=== PATIENT | male | born 1960 | race Caucasian/White ===

== ENCOUNTER → 2016-11-03 | Outpatient (CLI) | payer BC ==
[2016-11-03 11:19] LABS: Basophils # (A) 0.1 k/uL (0-0.2); Basophils % (A) 1 %; CH 30.8; CHCM 34.8; Eosinophils # (A) 0.6 k/uL (0-0.7); Eosinophils % (A) 9 %; HCT 48.1 % (39.0-53.0); HDW 3.08; HGB 16.9 gm/dL (13.0-17.5); Luc # (Auto) 0.16; Luc % (Auto) 3; Lymphocytes % (A) 30 %; MCH 31.2 pg (25.0-35.0); MCHC 35.2 g/dL (31.0-37.0); MCV 88.8 fL (80.0-100.0); Mean Platelet Volume 6.7; Monocytes # (A) 0.4 k/uL (0-1.0); Monocytes % (A) 6 %; Neutrophils # (A) 3.5 k/uL (1.3-7.7); Neutrophils % (A) 52 %; RBC 5.42 m/uL (4.30-5.90); RDW 13.8 % (11.5-15.5); WBC 6.7 k/uL (3.8-10.6); WBC (Perox) 6.79
[2016-11-03 11:21] LABS: Appearance,Urine Clear (Clear); Bilirubin,Urine Negative (Negative); Glucose,Urine (UA) Negative (Negative); Ketones,Urine Negative (Negative); Leukocyte Esterase,Urine Negative (Negative); Nitrite,Urine Negative (Negative); Protein,Urine Negative (Negative); Specific Gravity,Urine 1.018 (1.001-1.035); UA Billing (MACRO vs. MICRO) CHEM; Urobilinogen,Urine <2.0 mg/dL (<2.0)
[2016-11-03 11:37] LABS: Anion Gap 12 mmol/L; Blood Urea Nitrogen 12 mg/dL (9-20); Calcium 10.4 mg/dL (8.4-10.2); Carbon Dioxide 24 mmol/L (22-30); Chloride 106 mmol/L (98-107); Glucose 102 mg/dL (74-99); Non-African American GFR(MDRD) >60 (>60 ml/min/1.73 sqM); Potassium 4.6 mmol/L (3.5-5.1); Sodium 142 mmol/L (137-145)
== END | disposition home or self-care (01) ==
LOC: LABPAT 10:45
PROVIDERS: ATTEND Urology
DX: Z01.818 Encounter for other preprocedural examination (principal); E11.9 Type 2 diabetes mellitus without complications; R35.0 Frequency of micturition; N52.9 Male erectile dysfunction, unspecified
CPT/HCPCS: 80048; 81003; 85025; 87086

== ENCOUNTER 2016-11-11 07:37 | Observation (INO) | payer BC ==
[2016-11-09 14:28] VITALS: BMI 32.5
[~2016-11-11 07:37] MED LIST: AMPICILLIN 1,000 MG in SODIUM CHLORIDE 0.9% 50 ML IVPB ONE; DEXAMETHASONE SOD PHOSPHATE 10 MG/ML 1 ML VIAL IV ONE; GENTAMICIN 160 MG in SODIUM CHLORIDE 0.9% 100 ML IVPB ONE; LIDOCAINE 1% 20 ML VIAL (10MG/ML) FOR IV START INTRADERMA PRN; MIDAZOLAM 2 MG/2 ML VIAL IV PRN; ONDANSETRON 4 MG/2 ML VIAL IVP ONE; SCOPOLAMINE 1.5MG/72HR PATCH TRANSDERM ONE
[2016-11-11] MEDS: LACTATED RINGERS 1,000 ML IV SCH (08:12)
[2016-11-11] MEDS ORDERED: LIDOCAINE 1% 20 ML VIAL (10MG/ML) FOR IV START INTRADERMA ONE (08:12)
[2016-11-11] MEDS ORDERED: MIDAZOLAM 2 MG/2 ML VIAL ONE (08:30)
[2016-11-11] MEDS ORDERED: PROPOFOL 10 MG/ML 20 ML VIAL IV ONE (08:30)
[2016-11-11] MEDS ORDERED: fentaNYL (PF) 50 MCG/ML 2 ML AMP ONE (08:30)
[2016-11-11] MEDS ORDERED: GENTAMICIN 80 MG in SODIUM CHLORIDE 0.9% 500 ML IRRIGATION ONE (08:30)
[2016-11-11] MEDS ORDERED: GLYCOPYRROLATE 0.2 MG/ML 2 ML VIAL ONE (08:30)
[2016-11-11] MEDS ORDERED: KETAMINE 10 MG/ML 20 ML VIAL ONE (08:30)
[2016-11-11] MEDS ORDERED: LACTATED RINGERS 1,000 ML IV ONE (09:47)
[2016-11-11] MEDS ORDERED: ALBUTEROL NEBULIZED 2.5 MG/3 ML INHALATION PRN ×2 (10:01→10:14)
[2016-11-11] MEDS ORDERED: NALOXONE 0.4 MG/ML 1 ML VIAL IV PRN (10:04)
[2016-11-11] MEDS ORDERED: diphenhydrAMINE 50 MG CAP PO PRN (10:04)
--- NOTE | 2016-11-11 10:11 | P.OP ---
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 [facility] and came to see me for impotence. He has been treated with a variety of treatments that have failed or are not satisfactory. He comes for an inflatable penile prosthesis. The risks and complications of an outlined Description of Procedure: The patient is brought to the operating suite and given a spinal anesthetic followed by sedation on the operating table. A shave sterile prep is administered. An infrapubic incision from the base of the penis to just above the pubic bone is made. The rectus fascia is exposed as it are the corpora cavernosa bilaterally. 3-0 PDS stay stitches are placed in each corpora. Corporotomies were made bilaterally. I dissect proximally and distally in each corpora with Metzenbaum scissors followed by Hegar dilators 9-13. I then measured the length of the corpora bilaterally to be 10 cm proximal and 9 cm distal. I thus we'll use an AMS 15 cm CX prosthesis with 4 cm rear tip extenders. I then open the rectus fascia and clean the prevesical space. The balloon reservoir which had been prepped is placed in that space and the tubing is brought out through the external inguinal ring. It is filled with 65 mL of saline. The rectus fascia closed with an 0 running PDS. I then used the Joseph needle and Hoang introducer to pass each cylinder through the corpora with the Joseph needle coming out the glans penis bilaterally. The implants were seated and inflated and set nicely without ST deformity. There is no notable curvature as the patient thought he might have. I then closed the corporotomies with running 3-[address] the pump in the scrotum on the right side. I connected the pump to the reservoir with straight connects. I then pump the implant again and the pumps and deflates nicely. I irrigate thoroughly and closed the subcutaneous tissue with a 3-0 chromic and the skin with a 4-0 subcutaneous Vicryl a 14-[place] Knight catheters placed in the urine is clear the patient awake and returned recovery room in good condition. He tolerated the procedure well and will be observed in the hospital postoperatively. Blood loss is 50 mL
[2016-11-11 10:16] VITALS: RESP 16
[2016-11-11] MEDS: HYDROmorphone 1 MG/ML 1 ML SYRINGE IVP PRN ×3 (10:38→10:53)
[2016-11-11] MEDS: D5-0.45% NACL WITH KCL 20MEQ/L 1,000 ML IV SCH (11:51)
[2016-11-11] MEDS: HYDROmorphone PCA 5 MG/25 ML SYRINGE IV PRN ×2 (11:51→23:14)
[2016-11-11] MEDS: KETOROLAC 30 MG/ML 1 ML VIAL IVP PRN ×2 (15:52→23:02)
[2016-11-11] MEDS: CALCIUM CARBONATE 500 MG CHEWABLE PO SCH (18:27)
[2016-11-12] MEDS: CALCIUM CARBONATE 500 MG CHEWABLE PO SCH ×2 (04:58→08:18)
[2016-11-12] MEDS: ONDANSETRON 4 MG/2 ML VIAL IVP PRN ×2 (07:02→12:01)
[2016-11-12] MEDS: LACTATED RINGERS 1,000 ML IV SCH (08:14)
[2016-11-12] MEDS: D5-0.45% NACL WITH KCL 20MEQ/L 1,000 ML IV SCH (08:18)
--- NOTE | 2016-11-12 11:06 | P.DS ---
Providers Date of admission: 11/11/16 13:55 Attending physician: Anurag Best Primary care physician: Tobi Brown [facility] Course: The patient was brought to the hospital 11/11/2016 for an inflatable penile prosthesis. He underwent this without difficulty. He was kept in the hospital overnight because of the long distance from home to the hospital. This morning he feels well. The wound looks good. The catheter has been removed. If he voids to be discharged home. Follow-up in the office in one week. Postoperative instructions have been given. A prescription for [place] has been given. Patient Condition at Discharge: Good Plan - Discharge Summary New Discharge Prescriptions: Hydrocodone/Acetaminophen [[place] 7.5-325] 1 each PO Q4HR PRN #30 tab PRN Reason: Pain Control Discharge Medication List Albuterol Sulfate [Proair Hfa] 1 - 2 puff INHALATION RT-Q6H PRN 11/09/16 [ History] Calcium Carbonate [Tums] 500 mg PO TID 11/09/16 [History] Niacin [Niacin ER] 500 mg PO AC-SUPPER 11/09/16 [History] Hydrocodone/Acetaminophen [[place] 7.5-325] 1 each PO Q4HR PRN #30 tab 11/12/16 [ Rx] Follow up Appointment(s)/Referral(s): Anurag Best MD [STAFF PHYSICIAN] - 1 Week Care Plan Goals (MU): May shower if he covers a plastic wrap ,may drive next week Discharge Disposition: HOME SELF-CARE
[2016-11-12 12:43] VITALS: BP 124/66; PULSE 63; TEMP 97.2
== END 2016-11-12 15:24 | disposition home or self-care (01) ==
LOC: OR 07:37 → 3OBS 09:55 → OR 13:59
PROVIDERS: ADMIT Urology; ATTEND Urology
DX: N52.31 Erectile dysfunction following radical prostatectomy (principal); F17.200 Nicotine dependence, unspecified, uncomplicated; Z79.84 Long term (current) use of oral hypoglycemic drugs; Z79.899 Other long term (current) drug therapy; E11.9 Type 2 diabetes mellitus without complications; J45.909 Unspecified asthma, uncomplicated
CPT/HCPCS: 54401; G0378 ×2; C1713; J2250; J1580 ×2; J1100; J2405 ×2; J3010; J1885; J0290; J1170 ×2; J2704; 96365; 96366; 96375; 96376